=== PATIENT | female | born 1975 | race Caucasian/White ===

== ENCOUNTER 2016-12-06 16:03 | Emergency (ER) | payer OTHER ==
[~2016-12-06] VITALS: Ht 177.8 cm; Wt 71.8 kg
[2016-12-06] MEDS ORDERED: NS 1,000 ML IV ONE (17:45)
[2016-12-06 18:01] LABS: CONTROL LINE UCG INT CTR LINE PRESENT
[2016-12-06 18:13] LABS: BASO # 0.1 10^3/uL (0.0-0.2); BASO % 0.4 % (0.0-1.0); EOS % 0.3 % (0.0-3.0); IMMATURE GRANULOCYTE % 0.3 % (0-0); LYMPH # 1.7 10^3/uL (1.5-4.5); LYMPH % 12.7 % (24.0-44.0); MEAN CORPUSCULAR HEMOGLOBIN 32.6 pg (27.0-33.0); MEAN CORPUSCULAR HGB CONC 34.8 g/dl (32.0-36.5); MEAN CORPUSCULAR VOLUME 93.8 fl (80.0-96.0); MONO # 0.5 10^3/uL (0.0-0.8); MONO % 3.8 % (0.0-5.0); NEUTROPHILS # 11.3 10^3/uL (1.8-7.7); NEUTROPHILS % 82.5 % (36.0-66.0); PLATELET COUNT, AUTOMATED 156 10^3/uL (150-450); RED CELL DISTRIBUTION WIDTH 11.7 % (11.5-14.5); WHITE BLOOD COUNT 13.6 10^3/uL (4.0-10.0)
[2016-12-06 18:38] LABS: ALBUMIN 4.1 GM/DL (3.2-5.2); ALBUMIN/GLOBULIN RATIO 1.17 (1.00-1.93); ALKALINE PHOSPHATASE 60 U/L (45-117); ALT/SGPT 13 U/L (12-78); ANION GAP 5 MEQ/L (8-16); AST/SGOT 10 U/L (15-37); BILIRUBIN,DIRECT 0.1 MG/DL (0.0-0.2); BILIRUBIN,TOTAL 0.4 MG/DL (0.2-1.0); BLOOD UREA NITROGEN 11 MG/DL (7-18); CARBON DIOXIDE LEVEL 26 MEQ/L (21-32); CHLORIDE LEVEL 106 MEQ/L (98-107); CREATININE FOR GFR 0.84 MG/DL (0.55-1.02); GLOMERULAR FILTRATION RATE > 60.0 (>60); GLUCOSE, FASTING 98 MG/DL (70-105); POTASSIUM SERUM 3.5 MEQ/L (3.5-5.1); SODIUM LEVEL 137 MEQ/L (136-145); TOTAL PROTEIN 7.6 GM/DL (6.4-8.2)
--- NOTE | 2016-12-06 19:40 | REPUSA ---
Clinical history: vaginal bleeding. Findings: Real-time transabdominal and transvaginal ultrasound images of the pelvis were obtained. An anteverted uterus is noted, measuring 8.5 x 5.3 x 6.2 cm. The uterus demonstrates normal echotexture and echogenicity. The endometrial cavity demonstrate a single intrauterine . No pole or cardiac activity is seen. A normal yolk sac is noted measuring 8.4 mm. The right ovary measures 2. 1 x 1.5 x 2.6 cm. The left ovary measures 4.0 x 2.2 x 2.8 cm. There is a left ovarian complex lesion is seen measuring 1.3 x 1.0 x 1.1 cm. A second left ovarian cyst measures 1.7 x 1.0 x 1.1 cm. No adne xal masses are seen. Color Doppler flow is seen within both ovaries. There is no evidence of free flu id. Impression: 1. Intrauterine gestation measuring 6 weeks 6 days by ultrasound measurements. No pole is seen. There is no evidence of cardiac activity this time. Differential diagnosis includes early versus missed . Follow-up with serial serum beta hCG levels is recommended for further evalua tion. 2. Simple left ovarian cyst. There is also an echogenic complex lesion in the left ovary which may re present a hemorrhagic cyst.
[2016-12-06 20:09] VITALS: BP 92/51
== END 2016-12-06 20:15 | disposition home or self-care (01) ==
LOC: M ED 16:03
DX: O20.0 Threatened abortion (principal); O34.81 Maternal care for other abnormalities of pelvic organs, first trimester; N83.202 Unspecified ovarian cyst, left side; Z3A.01 Less than 8 weeks gestation of pregnancy; Z87.891 Personal history of nicotine dependence

== ENCOUNTER → 2016-12-08 | Outpatient (CLI) | payer OTHER | LOC: M LAB 16:01 | PROVIDERS: ATTEND Physician Assistant | DX: O20.0 Threatened abortion (principal); Z3A.00 Weeks of gestation of pregnancy not specified ==

== ENCOUNTER 2017-07-24 11:10 | Inpatient (IN) | payer OTHER ==
[2017-07-24] MEDS ORDERED: OXYTOCIN DRIP 30 UNITS in APPROPRIATE DILUENT 1 EA IV (12:30)
[2017-07-24] MEDS: LR 1,000 ML IV (12:43)
[2017-07-24 12:56] LABS: HEMATOCRIT 34.5 % (36.0-47.0); HEMOGLOBIN 11.8 g/dl (12.0-15.5); MEAN CORPUSCULAR HEMOGLOBIN 33.1 pg (27.0-33.0); MEAN CORPUSCULAR HGB CONC 34.2 g/dl (32.0-36.5); MEAN CORPUSCULAR VOLUME 96.9 fl (80.0-96.0); PLATELET COUNT, AUTOMATED 102 10^3/uL (150-450); RED BLOOD COUNT 3.56 10^6/uL (4.00-5.40); RED CELL DISTRIBUTION WIDTH 13.1 % (11.5-14.5); WHITE BLOOD COUNT 7.6 10^3/uL (4.0-10.0)
[2017-07-24] MEDS: PENICILLIN G POTASSIUM IV 5 MU in D5W MINI-BAG PLUS 100 ML IV (12:56)
[2017-07-24] MEDS ORDERED: FENTANYL 2MCG/ML ROPIVACAINE 0.2% IN 0.9% NACL 200ML IVBAG As Ordered (13:52)
[2017-07-24] MEDS ORDERED: OXYTOCIN 30 UNITS IN 0.9% NaCl 500ML IV BAG (J2590) As Ordered (14:11)
[2017-07-24] MEDS ORDERED: METHYLERGONOVINE MALEATE 0.2 MG/ML VIAL (J2210) As Ordered (15:07)
[2017-07-24] MEDS ORDERED: ceFAZolin 2 GM/D5W 50 ML IV BAG (J0690 PER 500MG) As Ordered (15:16)
[2017-07-24] MEDS ORDERED: BICITRA 30ML SOLN UDC As Ordered (15:24)
[2017-07-24] MEDS ORDERED: miSOPROStol 200 MCG TAB (S0191) As Ordered (15:24)
[2017-07-24] MEDS ORDERED: PENICILLIN G POTASSIUM IV 2.5 MU in APPROPRIATE DILUENT 1 EA IV (17:00)
[2017-07-24 17:49] LABS: AMPHETAMINES URINE REFLEX NEGATIVE (NEGATIVE); BARBITURATES URINE REFLEX NEGATIVE (NEGATIVE); BENZODIAZEPINES URINE REFLEX NEGATIVE (NEGATIVE); CANNABINOIDS URINE REFLEX NEGATIVE (NEGATIVE); COCAINE METABOLITE URINE REFLE NEGATIVE (NEGATIVE); METHADONE URINE REFLEX NEGATIVE (NEGATIVE); OPIATES URINE REFLEX NEGATIVE (NEGATIVE); PHENCYCLIDINE URINE REFLEX NEGATIVE (NEGATIVE)
[2017-07-24] MEDS ORDERED: ACETAMINOPHEN TAB 650MG DOSE (2X325MG) PO (21:15)
[2017-07-24] MEDS ORDERED: DOCUSATE SODIUM 100 MG CAP PO (21:15)
[2017-07-24] MEDS ORDERED: MOM 30ML SUSPENSION UDC PO (21:15)
[2017-07-24] MEDS ORDERED: RHOGAM 300 MCG (1500 IU) INJ (J2790) IM (21:15)
[2017-07-24] MEDS ORDERED: ANUSOL HC CREAM 30GM TOP (21:15)
[2017-07-24] MEDS ORDERED: METHYLERGONOVINE MALEATE 0.2 MG TAB PO (21:15)
[2017-07-24] MEDS ORDERED: ACETAMINOPHEN 500 MG TAB PO (21:15)
[2017-07-24] MEDS ORDERED: MEASLES,MUMPS,RUBELLA VACCINE INJ (MMR-II) (90707) SQ (21:15)
[2017-07-24] MEDS ORDERED: OXYTOCIN 30 UNITS IN 0.9% NaCl 500ML IV BAG (J2590) IV (21:15)
[2017-07-25] MEDS: IBUPROFEN 800 MG TAB PO (04:03)
[2017-07-25 06:26] LABS: HEMATOCRIT 28.8 % (36.0-47.0); MEAN CORPUSCULAR HEMOGLOBIN 33.7 pg (27.0-33.0); MEAN CORPUSCULAR HGB CONC 34.7 g/dl (32.0-36.5); PLATELET COUNT, AUTOMATED 123 10^3/uL (150-450); RED BLOOD COUNT 2.97 10^6/uL (4.00-5.40); RED CELL DISTRIBUTION WIDTH 13.2 % (11.5-14.5); WHITE BLOOD COUNT 12.7 10^3/uL (4.0-10.0)
== END 2017-07-26 16:35 | disposition home or self-care (01) | DRG 767 ==
LOC: M LDI 11:10 → M OBS 15:30
PROVIDERS: Obstetrics & Gynecology
PROC: 10D17Z9 Manual Extraction of Products of Conception, Retained, Via Natural or Artificial Opening (ICD-10-PCS; principal; 2017-07-24 15:42)
PROC: 10E0XZZ Delivery of Products of Conception, External Approach (ICD-10-PCS; 2017-07-24 15:42)
PROC: 0HQ9XZZ Repair Perineum Skin, External Approach (ICD-10-PCS; 2017-07-24 15:42)
DX: O62.3 Precipitate labor (principal); O72.0 Third-stage hemorrhage; Z37.0 Single live birth; Z3A.38 38 weeks gestation of pregnancy; O99.824 Streptococcus B carrier state complicating childbirth; O70.0 First degree perineal laceration during delivery

== ENCOUNTER → 2020-02-01 | Outpatient (CLI) | payer SELFPAY ==
[~2020-02-01] MED LIST: ANUS2.5C2 TOP; COLA100C5 PO; IBUP-1114 PO; MAPA500T2 PO; MM S100C PO; MOM30SS PO; PRENTAB9 PO
== END ==
LOC: M LABSMTC 15:26
PROVIDERS: ATTEND Pediatrics
DX: Z20.828 Contact with and (suspected) exposure to other viral communicable diseases (principal)

== ENCOUNTER → 2020-06-16 | Outpatient (CLI) | payer OTHER ==
--- NOTE | 2020-06-16 12:59 | REP ---
INDICATION: SCREENING MAMMO. COMPARISON: Baseline exam TECHNIQUE: Digital screening mammography with cardiac bilaterally in the CC and MLO projections using both 2D and 3D modalities. FINDINGS: The breasts are symmetric in size and shape. Dense heterogenous fibroglandular elements are seen bilaterally to such a degree that the sensitivity of the mammogram in detecting cancer is decreased. In the left breast seen only on the MLO view and passed on DBT imaging there may be 2 nodular densities in the upper aspect. They cannot be confirmed on the CC view. No other suspicious features are seen in either breast. There is no internal architectural distortion. There is no skin thickening or nipple retraction. Benign calcifications are seen in the left breast. The Volpara volumetric breast density pattern is C. IMPRESSION: BIRADS/ACR 0. potential nodular density seen in the left breast as described above. This patient's Tyrer-Cuzick lifetime breast cancer risk assessment score is 14.7%. This mammogram was interpreted with the aid of an FDA-approved computer-aided detection system. The patient states she had a clinical breast exam in October 2019. The patient letter being requested is M0 dense. RECOMMENDATION: Diagnostic mammography left breast with spot compression view in the MLO and potentially CC view along with other possible mammographic projections and breast ultrasonography. Due to the patient's breast density score baseline MRI should be considered. <Electronically signed by Luis Piedra > 06/16/20 [id number]
== END ==
LOC: M WHC 11:32
PROVIDERS: ATTEND Nurse Practitioner Primary Care
DX: Z12.31 Encounter for screening mammogram for malignant neoplasm of breast (principal); R92.8 Other abnormal and inconclusive findings on diagnostic imaging of breast

== ENCOUNTER → 2020-07-19 | Outpatient (CLI) | payer OTHER ==
--- NOTE | 2020-07-19 14:20 | REP ---
INDICATION: ADDL VIEWS/LEFT BREAST NODULAR DENSITY. Two nodular densities seen on tomographic images of the left breast in the upper outer quadrant MLO projection only on screening study June 16, 2020. Further evaluation is recommended. COMPARISON: June 16, 2020 prior mammography. TECHNIQUE: Magnified focal spot-compression CC, mL, and MLO views are obtained. 3D tomography in the mL projection is carried out. Targeted left breast sonography is performed. This mammogram was interpreted with the aid of an FDA-approved computer-aided detection system. FINDINGS: Breast parenchyma is again seen to be heterogeneously dense in a pattern which may inhibit the sensitivity of mammography. In the lateral aspect of the upper outer quadrant left breast there are 2 small well-circumscribed nodular opacities adjacent 1 another in a configuration suggesting intramammary lymph node. No other abnormal soft tissue finding. No spiculation or microcalcification is seen. No other significant mammographic abnormality. The Volpara volumetric breast density pattern is C. Targeted ultrasound: Upper outer quadrant the left breast is scanned sonographically. 12:00 to 3:00. In the 2 o'clock position in the upper outer quadrant there are 2 oval-shaped hypoechoic structures with central hyperechoic hilar architecture consistent with small intramammary lymph nodes. These measure 0.9 x 0.4 x 0.9 and 0.6 x 0.3 x 1.2 cm respectively. IMPRESSION: BIRADS/ACR category 3 probably benign left breast mammographic and sonographic findings. Findings most compatible with a benign intramammary lymph nodes in the upper-outer quadrant of the left breast. This patient's Tyrer-Cuzick lifetime breast cancer risk assessment score is 14.7%. RECOMMENDATION: Repeat left breast mammography and sonography recommended in 6 months to document stability over time.. The patient letter being requested is M 3 dense. <Electronically signed by Juancarlos Machuca > 07/19/20 [id number]
== END ==
LOC: M WHC 11:05
PROVIDERS: ATTEND Nurse Practitioner Primary Care
DX: Z12.31 Encounter for screening mammogram for malignant neoplasm of breast (principal)
CPT/HCPCS: 76642; 77065; G0279